=== PATIENT | male | born 1970 | race Caucasian/White ===

== ENCOUNTER → 2017-09-18 | Outpatient (CLI) | payer BC ==
--- NOTE | 2017-09-18 16:12 | CT ---
EXAM DESCRIPTION: Abdomen/Pelvis w/o Contrast: Computed Tomography. CLINICAL HISTORY: CALCULUS OF KIDNEY COMPARISON: None. TECHNIQUE: Spiral-axial scans at 5.0 mm intervals through the abdomen and pelvis. Coronal and sagittal 2.0 mm reconstructions. No IV or oral contrast. Total Exam DLP: 1255.64 mGy-cm. This exam was performed according to our departmental CT dose-optimization program which includes automated exposure control, adjustment of the mA and/or kV according to patient size and/or use of iterative reconstruction technique; to reduce radiation dose to as low as reasonably achievable (ALARA). FINDINGS: Kidneys and Ureters: 5.5 mm radiodense stone in the distal ureter just distal to the ureter crossing over the right common iliac artery and vein. Ureter proximal to this is distended with minimal periureteral edema. Normal caliber of the ureter distal to the stone. Mild hydronephrosis on the right. No perinephric stranding and no other radiodense stones. At least 5 radiodense stones in the left kidney, too of which are in the upper collecting system. Inferior stone is approximately 2 mm in diameter. The remaining stones are between 1 and 2 cm in diameter. No hydronephrosis or perinephric edema. Left ureter is unremarkable. Pelvic Organs: Urinary bladder contains no radiodense stones. Prostate gland is abutting the seminal vesicles. Minimal fluid in the anterior cul-de-sac of the pelvis. Lung and pleura bases: Negative. Liver, spleen, stomach, and adrenal glands: Unremarkable. Pancreas, Gallbladder, Ducts: Gallbladder visualized. Ducts and pancreas negative. Aorta: Unremarkable. Small Bowel: Negative. Terminal Ileum/Cecum: Normal caliber. Normal caliber of the appendix. Normal density of the surrounding fat. Colon: Small diverticula in the distal colon with no evidence of complications. Minimal redundancy of the sigmoid colon. Mesentery: No ascites or free air. Spine and Bony Pelvis: Bulging L5-S1 disc. Increased changes and disc space narrowing thoracic spine most likely old Scheuermann's disease. Abdominal Wall/Back Soft Tissues: Bilateral small fatty inguinal hernias not containing bowel. IMPRESSION: 1. 5.5 mm radiodense stone partially obstructing the right ureter as it crosses over the right common iliac artery and vein. Mild hydronephrosis and proximal right hydroureter. No significant radiodense stones in the right kidney. At least 5 radiodense stones in the left kidney 2 mm diameter or less. 2 in the upper collecting system. Left ureter unremarkable. CRITICAL COMMUNICATION: The critical value was discussed directly by phone with Mr. Anurag Aviles nurse practitioner at approximately 1558 hours, on September 18, 2017. Electronically signed by: Rigo Cadena MD 09/18/2017 4:10 PM CDT
== END ==
LOC: CT 10:34
PROVIDERS: ATTEND Nurse Practitioner Family
DX: N20.0 Calculus of kidney (principal)

== ENCOUNTER → 2017-12-27 | Outpatient (CLI) | payer BC | LOC: GMAL 13:08 | PROVIDERS: ATTEND Family Medicine | DX: D51.3 Other dietary vitamin B12 deficiency anemia (principal); Z12.5 Encounter for screening for malignant neoplasm of prostate; R53.81 Other malaise; E55.9 Vitamin D deficiency, unspecified ==

== ENCOUNTER 2018-01-23 22:05 | Emergency (ER) | payer BC ==
[2018-01-23] MEDS ORDERED: KETOROLAC TROMETHAMINE INJ 30 MG/ML VIAL IV ONE (22:31)
[2018-01-23] MEDS ORDERED: SODIUM CHLORIDE 0.9% 1000ML 1,000 ML IVS ONE (22:31)
--- NOTE | 2018-01-23 22:34 | ED.PDOC ---
History of Present Illness - General Chief Complaint: Problem Stated Complaint: Right sided flank pain Time Seen by Provider: 01/23/18 22:30 Source: patient Exam Limitations: no limitations - History of Present Illness Initial Comments: patient comes in today with sudden onset of severe right flank pain that radiates down to the right groin and abdomen. Patient states he was fine until approximately 5 PM when he started having the severe pain. He's also had some difficulty with urination and what urination he has been able to have had trace amount of blood. Patient has had no dysuria, fever, chills, nausea or vomiting. He has had kidney stones in the past. The last one was 5.5 mm and he does not believe it ever passed. At that time he had urology consultation but he did fail follow-up. He states it has not bothered him for several months and so he was not specifically concerned about it. Tonight when the pain started he took Flomax and when the pain persisted to become constant he decided to follow-up. Patient is otherwise healthy with only past medical history of hypertension and nephrolithiasis. Patient does not know the composition of passed stones. He's had no past surgical history. His allergies are only to sulfa. He does not smoke, drinks very rarely, and does not take illicit drugs. Timing/Duration: just prior to arrival Quality: severe, sharpness Onset Location: right flank Radiation: groin, scrotal Activites at Onset: none Prior abdominal problems: similar symptoms Improving Factors: nothing Worsening Factors: nothing Associated Symptoms: other - hematuria Allergies/Adverse Reactions: Allergies Sulfa Antibiotics Allergy (Verified 12/15/13 13:21) Home Medications: Ambulatory Orders HYDROcodone 5MG/APAP 325MG [[place] 5/325] 1 ea PO Q4-6H PRN #10 tab 12/15/13 Naproxen Sodium [Anaprox Ds] 550 mg PO BID #20 tab 12/15/13 Tamsulosin [Flomax] 0.4 mg PO DAILY #7 cap 12/15/13 Tramadol HCl [Ultram] 50 mg PO Q6HR PRN 7 Days #30 tab 01/24/18 Review of Systems - Review of Systems Constitutional: States: no symptoms reported. Denies: chills, diaphoresis, fever EENTM: States: no symptoms reported Respiratory: States: no symptoms reported. Denies: cough, short of breath, wheezing Cardiology: States: no symptoms reported. Denies: chest pain, edema, palpitations Gastrointestinal/Abdominal: States: see HPI Genitourinary: States: see HPI Musculoskeletal: States: no symptoms reported Skin: States: no symptoms reported Past Medical History (General) - Patient Medical History Hx MRSA: Yes - Foot 2011 MRSA Source:: Wound - Social History Hx Tobacco Use: No Family Medical History - Family History Mother Family History: No Known Physical Exam - Physical Exam General Appearance: Alert, No apparent distress Eyes, Ears, Nose, Throat Exam: PERRL/EOMI, normal ENT inspection Neck: non-tender, full range of motion, supple Cardiovascular/Respiratory: regular rate, rhythm, no M/R/G, normal peripheral pulses, normal breath sounds, no respiratory distress Gastrointestinal/Abdominal: normal bowel sounds, soft, other - TTP to RLQ, R flank, and R periumbilical area with no distention and no rebound Progress - Progress Progress: 01/23/18 23:05 Patient is resting comfortably after Toradol. Has not yet had to urinate. Will continue with IVF until we can get urine to check for infection. Still on first bag of fluid. UA consistent with nephrolithiasis with no infection. WBC is elevated but could be secondary to stress reaction and no other signs of infection. Follow up with PCP or Urology in 2 days and recheck labs. Continue to strain all urine and ultram given for pain. 01/24/18 00:15 - Results/Orders Results/Orders: 01/23/18 22:22 UA [URINALYSIS] Stat 01/23/18 22:31 Sodium Chloride 0.9% 1000ML [Ns 1000 ml] 1,000 ml IVS ONCE Laboratory Results WBC 15.8 K/mm3 (4.8-10.8) H 01/23/18 22:28 RBC 5.56 M/mm3 (4.70-6.10) 01/23/18 22:28 Hgb 16.0 gm/dL (14.0-18.0) 01/23/18 22:28 Hct 48.0 % (42.0-52.0) 01/23/18 22:28 MCV 86.3 fl (80.0-94.0) 01/23/18 22:28 MCH 28.7 pg (27.0-31.0) 01/23/18: MCHC 33.3 g/dL (33.0-37.0) 01/23/18: RDW 13.7 % (11.5-14.5) 01/23/18 22: Plt Count 376 K/mm3 (130-400) 01/23/18 22: MPV 6.9 fl (7.40-10.4) L 01/23/18: Absolute Neuts (auto) 13.30 K/uL (1.8-6.8) H 01/23/18 22: Absolute Lymphs (auto) 1.50 K/uL (1.0-3.4) 01/23/18: Absolute Monos (auto) 0.90 K/uL (0.2-0.8) H 01/23/18: Absolute Eos (auto) 0.10 K/uL (0.0-0.4) 01/23/18: Absolute Basos (auto) 0.10 K/uL (0.0-0.1) 01/23/18 22: Neutrophils % 84.0 % (42.0-78.0) H 01/23/18: Lymphocytes % 9.2 % (20.0-50.0) L 01/23/18: Monocytes % 5.8 % (2.0-9.0) 01/23/18: Eosinophils % 0.6 % (1.0-5.0) L 01/23/18: Basophils % 0.4 % (0.0-2.0) 01/23/18 22:28 Sodium 138 mmol/L (135-145) 01/23/18 22:28 Potassium 3.9 mmol/L (3.6-5.0) 01/23/18: Chloride 102 mmol/L (101-111) 01/23/18: Carbon Dioxide 30 mmol/L (21-31) 01/23/18 22:28 Anion Gap 9.9 (12-18) L 01/23/18 22:28 BUN 21 mg/dL (7-18) H 01/23/18 22:28 Creatinine 1.17 mg/dL (0.6-1.3) 01/23/18 22:28 BUN/Creatinine Ratio 17.9 (10-20) 01/23/18 22:28 Random Glucose 131 mg/dL (70-105) H 01/23/18 22:28 Serum Osmolality 280.5 mOsm/L (275-295) 01/23/18 22:28 Calcium 9.5 mg/dL (8.4-10.2) 01/23/18 22:28 Total Bilirubin 0.6 mg/dL (0.2-1.0) 01/23/18 22:28 AST 22 IU/L (10-42) 01/23/18 22:28 ALT 21 IU/L (10-60) 01/23/18 22:28 Alkaline Phosphatase 65 IU/L (42-121) 01/23/18 22:28 Serum Total Protein 7.6 gm/dL (6.4-8.2) 01/23/18 22:28 Albumin 4.3 g/dl (3.2-5.5) 01/23/18:28 Globulin 3.3 gm/dL (2.3-3.5) 01/23/18 22:28 Albumin/Globulin Ratio 1.3 (1.1-1.9) 01/23/18 22:28 Patient Name: MIKY FISHER Gender: Male Date of : 1970 Referring Physician: MANNY TERAN Organization: [facility] Accession Number: [id number] Requested Date: January 23, 2018 22:30 Report Status: Final Requested Procedure: 1 Procedure Description: Abdoment/Pelvis w/o Contrast Modality: CT Findings Reporting MD: Tim Keyes Fellow MD: Not available Dictation Time: Senior Bi Developer: Not available Extrusion Press Adjuster Date: PROCEDURE: Abdoment/Pelvis w/o Contrast HISTORY: right abdomen /cva pain hx of nephrolithiasis Indication: Same as above Comparison: None Technique: CT of the abdomen and pelvis was done without intravenous contrast. Images were obtained from the lung base to the level of the pubic symphysis in axial plane, followed by orthogonal sagittal and coronal reconstruction. Oral contrast was not given for the study. This exam was performed according to our departmental dose-optimization program, which includes automated exposure control, adjustment of the mA and/or KV according to the patient's size and/or use of iterative reconstruction technique. FINDINGS: Images through the lung bases do not show any focal infiltrates or pleural effusions. The liver, gallbladder, pancreas, spleen and the bilateral adrenal glands appear unremarkable, given the limitation of lack of intravenous contrast. There is presence of multiple subcentimeter nonobstructive bilateral renal calculi. There is right-sided hydroureteronephrosis to the level of 4 mm distal right pelvic ureteral calculus approximately 1.5 cm from the right ureterovesical junction The urinary bladder is unremarkable, without any evidence of wall thickening, calculi or filling defects. The small bowel appears unremarkable, without any evidence of small bowel obstruction or bowel wall thickening. Radiology [employer] [address] [place] [address], [address] [place] [address] T [phone] F [phone] [email or web address] Report exported on Jan 23, 2018 23:04:04 -0500 - Page 2 of [address] evidence of acute appendicitis, pericecal inflammatory change or ileocecal mesenteric adenitis. The ileocecal junction appears unremarkable. There is no CT evidence of acute colonic diverticulitis or colitis or large bowel obstruction. There is no pathological lymphadenopathy in the retroperitoneum or in the pelvic region. There is no evidence of free fluid or free air in the abdomen or the pelvic region. There is no clinically significant abdominal aortic aneurysm. There is presence of small fat-containing bilateral inguinal hernias The visualized lumbar spine is unremarkable. The paravertebral soft tissues are unremarkable. The remainder of the pelvic structures are unremarkable. IMPRESSION: There is presence of multiple subcentimeter nonobstructive bilateral renal calculi. There is right-sided hydroureteronephrosis to the level of 4 mm distal right pelvic ureteral calculus approximately 1.5 cm from the right ureterovesical junction Laboratory Results WBC 15.8 K/mm3 (4.8-10.8) H 01/23/18 22:28 RBC 5.56 M/mm3 (4.70-6.10) 01/23/18 22:28 Hgb 16.0 gm/dL (14.0-18.0) 01/23/18 22:28 Hct 48.0 % (42.0-52.0) 01/23/18 22:28 MCV 86.3 fl (80.0-94.0) 01/23/18 22: MCH 28.7 pg (27.0-31.0) 01/23/18: MCHC 33.3 g/dL (33.0-37.0) 01/23/18: RDW 13.7 % (11.5-14.5) 01/23/18 22: Plt Count 376 K/mm3 (130-400) 01/23/18 22: MPV 6.9 fl (7.40-10.4) L 01/23/18 22:28 Absolute Neuts (auto) 13.30 K/uL (1.8-6.8) H 01/23/18: Absolute Lymphs (auto) 1.50 K/uL (1.0-3.4) 01/23/18: Absolute Monos (auto) 0.90 K/uL (0.2-0.8) H 01/23/18: Absolute Eos (auto) 0.10 K/uL (0.0-0.4) 01/23/18: Absolute Basos (auto) 0.10 K/uL (0.0-0.1) 01/23/18: Neutrophils % 84.0 % (42.0-78.0) H 01/23/18: Lymphocytes % 9.2 % (20.0-50.0) L 01/23/18: Monocytes % 5.8 % (2.0-9.0) 01/23/18: Eosinophils % 0.6 % (1.0-5.0) L 01/23/18: Basophils % 0.4 % (0.0-2.0) 01/23/18:28 Sodium 138 mmol/L (135-145) 01/23/18: Potassium 3.9 mmol/L (3.6-5.0) 01/23/18: Chloride 102 mmol/L (101-111) 01/23/18:28 Carbon Dioxide 30 mmol/L (21-31) 01/23/18 22:28 Anion Gap 9.9 (12-18) L 01/23/18 22:28 BUN 21 mg/dL (7-18) H 01/23/18 22:28 Creatinine 1.17 mg/dL (0.6-1.3) 01/23/18 22:28 BUN/Creatinine Ratio 17.9 (10-20) 01/23/18 22:28 Random Glucose 131 mg/dL (70-105) H 01/23/18 22:28 Serum Osmolality 280.5 mOsm/L (275-295) 01/23/18 22:28 Calcium 9.5 mg/dL (8.4-10.2) 01/23/18 22:28 Total Bilirubin 0.6 mg/dL (0.2-1.0) 01/23/18 22:28 AST 22 IU/L (10-42) 01/23/18 22:28 ALT 21 IU/L (10-60) 01/23/18 22:28 Alkaline Phosphatase 65 IU/L (42-121) 01/23/18 22:28 Serum Total Protein 7.6 gm/dL (6.4-8.2) 01/23/18 22:28 Albumin 4.3 g/dl (3.2-5.5) 01/23/18 22:28 Globulin 3.3 gm/dL (2.3-3.5) 01/23/18 22:28 Albumin/Globulin Ratio 1.3 (1.1-1.9) 01/23/18 22:28 Urine Color Yellow (Yellow) 01/23/18 23:43 Urine Appearance Clear (Clear) 01/23/18 23:43 Urine pH 5.5 (4.5-7.8) 01/23/18 23:43 Ur Specific [place] 1.025 (1.005-1.030) 01/23/18 23:43 Urine Protein Negative mg/dL 01/23/18 23:43 Urine Glucose (UA) Negative mg/dL (Negative) 01/23/18 23:43 Urine Ketones Negative mg/dL (NEGATIVE) 01/23/18 23:43 Urine Blood Small (Negative) H 01/23/18 23:43 Urine Nitrite Negative 01/23/18 23:43 Urine Bilirubin Negative (NEGATIVE) 01/23/18 23:43 Urine Urobilinogen 0.2 mg/dL (0.2-1.0) 01/23/18 23:43 Ur Leukocyte Esterase Negative (Negative) 01/23/18 23:43 Urine RBC 5-10 /hpf H 01/23/18 23:43 Urine WBC 1-3 /hpf 01/23/18 23:43 Ur Epithelial Cells 3-5 /hpf 01/23/18 23:43 Urine Bacteria Rare 01/23/18 23:43 Departure - Departure Clinical Impression: Urolithiasis Qualifiers: Urinary calculus location: ureter Qualified Code(s): N20.1 - Calculus of ureter Disposition: Discharge to Home or Self Care Condition: Good Departure Forms: ED Discharge - Pt. Copy, Patient Portal Self Enrollment Referrals: Amor Gonzales III, MD [Primary Care Provider] - 1-2 Weeks Home Medications: Ambulatory Orders HYDROcodone 5MG/APAP 325MG [[place] 5/325] 1 ea PO Q4-6H PRN #10 tab 12/15/13 Naproxen Sodium [Anaprox Ds] 550 mg PO BID #20 tab 12/15/13 Tamsulosin [Flomax] 0.4 mg PO DAILY #7 cap 12/15/13 Tramadol HCl [Ultram] 50 mg PO Q6HR PRN 7 Days #30 tab 01/24/18 Additional Instructions: follow up 2 days with PCP and recheck labs. Return to ER for temp >100.5, emesis, intractable pain, or difficulty urinating.
--- NOTE | 2018-01-23 22:59 | CT ---
PROCEDURE: Abdoment/Pelvis w/o Contrast HISTORY: right abdomen /cva pain hx of nephrolithiasis Indication: Same as above Comparison: None Technique: CT of the abdomen and pelvis was done without intravenous contrast. Images were obtained from the lung base to the level of the pubic symphysis in axial plane, followed by orthogonal sagittal and coronal reconstruction. Oral contrast was not given for the study. This exam was performed according to our departmental dose-optimization program, which includes automated exposure control, adjustment of the mA and/or KV according to the patient's size and/or use of iterative reconstruction technique. FINDINGS: Images through the lung bases do not show any focal infiltrates or pleural effusions. The liver, gallbladder, pancreas, spleen and the bilateral adrenal glands appear unremarkable, given the limitation of lack of intravenous contrast. There is presence of multiple subcentimeter nonobstructive bilateral renal calculi. There is right-sided hydroureteronephrosis to the level of 4 mm distal right pelvic ureteral calculus approximately 1.5 cm from the right ureterovesical junction The urinary bladder is unremarkable, without any evidence of wall thickening, calculi or filling defects. The small bowel appears unremarkable, without any evidence of small bowel obstruction or bowel wall thickening. There is no CT evidence of acute appendicitis, pericecal inflammatory change or ileocecal mesenteric adenitis. The ileocecal junction appears unremarkable. There is no CT evidence of acute colonic diverticulitis or colitis or large bowel obstruction. There is no pathological lymphadenopathy in the retroperitoneum or in the pelvic region. There is no evidence of free fluid or free air in the abdomen or the pelvic region. There is no clinically significant abdominal aortic aneurysm. There is presence of small fat-containing bilateral inguinal hernias The visualized lumbar spine is unremarkable. The paravertebral soft tissues are unremarkable. The remainder of the pelvic structures are unremarkable. IMPRESSION: There is presence of multiple subcentimeter nonobstructive bilateral renal calculi. There is right-sided hydroureteronephrosis to the level of 4 mm distal right pelvic ureteral calculus approximately 1.5 cm from the right ureterovesical junction Electronically signed by: Tim Keyes MD 01/23/2018 10:57 PM CDT Workstation: [id number]
[2018-01-24] MEDS ORDERED: HYDROCOD/APAP 5/325 (ER DISP) #3 TAB PO ONE (00:20)
[2018-01-24 00:35] VITALS: BP 126/76; TEMP 98.4; O2SAT 96
== END 2018-01-24 00:30 | disposition home or self-care (01) ==
LOC: ER 22:05
DX: N13.2 Hydronephrosis with renal and ureteral calculous obstruction (principal); I10 Essential (primary) hypertension; Z88.2 Allergy status to sulfonamides; Z87.442 Personal history of urinary calculi; Z79.899 Other long term (current) drug therapy
CPT/HCPCS: 36415; 74176; 80053; 81001; 85025; J1885; J7030

== ENCOUNTER 2018-02-18 19:35 | Emergency (ER) | payer BC ==
[2018-02-18 19:52] VITALS: O2SAT 99
--- NOTE | 2018-02-18 19:55 | ED.PDOC ---
History of Present Illness - General Chief Complaint: Problem Stated Complaint: right flank pain, possible kidney stone Time Seen by Provider: 02/18/18 19:52 Source: patient Exam Limitations: no limitations - History of Present Illness Initial Comments: Patient presents with right flank pain since yesterday. He has a history of passing kidney stones having passed three this year already. He is having trouble urinating with this one. No fevers. No dysuria. No visible hematuria. No other complaint. Timing/Duration: 24 hours Severity: moderate Improving Factors: rest Worsening Factors: movement Associated Symptoms: denies symptoms Allergies/Adverse Reactions: Allergies Sulfa Antibiotics Allergy (Verified 02/18/18 19:52) Home Medications: Ambulatory Orders HYDROcodone 5MG/APAP 325MG [[place] 5/325] 1 ea PO Q4-6H PRN #10 tab 12/15/13 Naproxen Sodium [Anaprox Ds] 550 mg PO BID #20 tab 12/15/13 Tamsulosin [Flomax] 0.4 mg PO DAILY #7 cap 12/15/13 Tramadol HCl [Ultram] 50 mg PO Q6HR PRN 7 Days #30 tab 01/24/18 Ketorolac Tromethamine [Toradol Tabs] 10 mg PO Q6HRS PRN #20 tab 02/18/18 Review of Systems - Review of Systems Constitutional: States: no symptoms reported EENTM: States: no symptoms reported Respiratory: States: no symptoms reported Cardiology: States: no symptoms reported Gastrointestinal/Abdominal: States: no symptoms reported Genitourinary: States: see HPI Musculoskeletal: States: no symptoms reported Skin: States: no symptoms reported Neurological: States: no symptoms reported Endocrine: States: no symptoms reported Hematologic/Lymphatic: States: no symptoms reported Past Medical History (General) - Patient Medical History Hx Seizures: No Hx Stroke: No Hx Dementia: No Hx Asthma: No Hx of COPD: No Hx Cardiac Disorders: No Hx Congestive Heart Failure: No Hx Pacemaker: No Hx Hypertension: Yes Hx Thyroid Disease: No Hx Diabetes: No Hx Gastroesophageal Reflux: No Hx Renal Disease: No Hx Cancer: No Hx of HIV: No Hx Hepatitis C: No Hx MRSA: Yes - 2011 MRSA Source:: Wound - Vaccination History Hx Tetanus, Diphtheria Vaccination: No Hx Influenza Vaccination: No Hx Pneumococcal Vaccination: No - Social History Hx Tobacco Use: No Hx Alcohol Use: Yes - social Hx Substance Use: No Hx Substance Use Treatment: No Hx Depression: No Hx Physical Abuse: No Hx Emotional Abuse: No Hx Suspected Abuse: No Family Medical History - Family History Mother Family History: No Known Physical Exam - Physical Exam General Appearance: Alert Eye Exam: bilateral normal Ears, Nose, Throat: normal ENT inspection Neck: non-tender, full range of motion, supple Respiratory: lungs clear, normal breath sounds Cardiovascular/Chest: normal peripheral pulses, regular rate, rhythm, no edema Gastrointestinal/Abdominal: normal bowel sounds, non tender, soft Back Exam: CVA tenderness (R) Extremity: normal range of motion, non-tender, normal inspection Neurologic: no motor/sensory deficits, alert, normal mood/affect, oriented x 3 Skin Exam: normal color Lymphatic: no adenopathy Progress - Progress Progress: 02/18/18 22:44 Laboratory Tests 02/18/18 02/18/18 02/18/18 20:00 20:00 22:10 WBC 13.5 H RBC 4.93 Hgb 14.1 Hct 42.5 MCV 86.2 MCH 28.6 MCHC 33.2 RDW 13.4 Plt Count 313 MPV 6.7 L Absolute Neuts (auto) 11.10 H Absolute Lymphs (auto) 1.50 Absolute Monos (auto) 0.80 Absolute Eos (auto) 0.10 Absolute Basos (auto) 0.10 Neutrophils % 82.2 H Lymphocytes % 10.9 L Monocytes % 6.0 Eosinophils % 0.5 L Basophils % 0.4 Sodium 139 Potassium 3.9 Chloride 101 Carbon Dioxide 29 Anion Gap 12.9 BUN 25 H Creatinine 1.27 BUN/Creatinine Ratio 19.7 Random Glucose 133 H Serum Osmolality 283.9 Calcium 9.1 Urine Color [place] Urine Appearance Clear Urine pH 5.5 Ur Specific [place] >= 1.030 Urine Protein Negative Urine Glucose (UA) Negative Urine Ketones Negative Urine Blood Trace-intact H Urine Nitrite Negative Urine Bilirubin Negative Urine Urobilinogen 0.2 Ur Leukocyte Esterase Negative Urine RBC 1-3 Urine WBC 3-5 H Ur Epithelial Cells 0-1 Calcium Oxalate Crystal 1+ Amorphous Sediment 1+ Urine Bacteria 1+ Hyaline Casts 0-1 Urine Mucus Moderate Toradol 30 mg IM x one relieved the pain. CT ab/pelvis showed 7 mm stone in right ureter. Care instructions given. E.R. warnings given. Questions were elicited and answered. Patient voiced understanding and agreement with the plan. Departure - Departure Clinical Impression: Urolithiasis Disposition: Discharge to Home or Self Care Condition: Good Departure Forms: ED Discharge - Pt. Copy, Patient Portal Self Enrollment Instructions: DI for Kidney Stones Diet: resume usual diet, other - increase fluids Activity: increase activity as tolerated Referrals: Amor Gonzales III, MD [Primary Care Provider] - 1-2 Weeks Prescriptions: Ketorolac Tromethamine [Toradol Tabs] 10 mg PO Q6HRS PRN #20 tab PRN Reason: Moderate Pain Home Medications: Ambulatory Orders HYDROcodone 5MG/APAP 325MG [[place] 5/325] 1 ea PO Q4-6H PRN #10 tab 12/15/13 Naproxen Sodium [Anaprox Ds] 550 mg PO BID #20 tab 12/15/13 Tamsulosin [Flomax] 0.4 mg PO DAILY #7 cap 12/15/13 Tramadol HCl [Ultram] 50 mg PO Q6HR PRN 7 Days #30 tab 01/24/18 Ketorolac Tromethamine [Toradol Tabs] 10 mg PO Q6HRS PRN #20 tab 02/18/18 Additional Instructions: Increase fluids. Take medications as prescribed. Try to catch the stone with a strainer and bring it to the lab here for evaluation. See a glove turner and former for guidance as to how you can avoid future stones. Return to the E.R. for fever, pain with urination, or if pain continues more than 3 more days.
[2018-02-18] MEDS: KETOROLAC TROMETHAMINE INJ 30 MG/ML VIAL IM ONE (20:01)
--- NOTE | 2018-02-18 21:26 | CT ---
EXAM DESCRIPTION: Abdoment/Pelvis w/o Contrast CLINICAL HISTORY: 47 years Male, stone protocol Comparison: 01/23/2018, 09/18/2017 and 12/15/2013 TECHNIQUE: Contiguous axial images of the abdomen and pelvis were obtained without IV contrast followed by reconstruction images. This exam was performed according to our departmental dose-optimization program, which includes automated exposure control, adjustment of the mA and/or kV according to patient size and/or use of iterative reconstruction technique. FINDINGS: Lung bases/lower chest: Minimal bibasilar subsegmental atelectasis. Increased fat attenuation in the distal right paraesophageal region could represent herniated intra-abdominal fat versus paraesophageal lipoma, stable. Liver: No gross finding. Gallbladder/Bile ducts: Gallbladder within normal limits. No intra or extrahepatic biliary ductal dilatation. Spleen: Within normal limits Pancreas: Within normal limits Adrenal glands: Within normal limits Kidneys/Bladder: Obstructing distal right ureteric stone measuring 7 mm just proximal to the right ureterovesicular junction. Mild to moderate right hydroureteronephrosis. This appears to represent interval migration of a previously noted distal ureteric stone previous CT performed 01/23/2018. Bilateral nonobstructing punctate renal stones. Duplicated left renal collecting system, anatomical variant. Mild bilateral perinephric stranding. GI tract: No evidence of bowel obstruction. Scattered descending colon diverticula without adjacent findings to suggest active inflammatory process. The appendix is within normal limits. Moderate amount of stool throughout the large bowel. Prostate gland: Within normal limits Vascular structures: Limited evaluation in this unenhanced study. Free fluid: No free fluid. Lymph nodes: No lymphadenopathy. Soft tissues: Within normal limits Bones: No acute osseous finding. IMPRESSION: Distal obstructive right ureterolithiasis (7 mm), just proximal to the ureterovesicular junction. Associated mild to moderate proximal right hydroureteronephrosis. This appears to represent interval migration of a previously noted distal right ureteric stone on previous CT performed 01/23/2018. Electronically signed by: Ludy Singh MD 02/18/2018 9:25 PM [employer]
[2018-02-18 22:59] VITALS: BP 121/76; TEMP 98.1
== END 2018-02-18 22:59 | disposition home or self-care (01) ==
LOC: ER 19:35
DX: N13.2 Hydronephrosis with renal and ureteral calculous obstruction (principal); I10 Essential (primary) hypertension; Z79.899 Other long term (current) drug therapy; Z88.2 Allergy status to sulfonamides
CPT/HCPCS: 36415; 74176; 80048; 81001; 85025; J1885

== ENCOUNTER → 2019-10-29 | Outpatient (CLI) | payer BC ==
--- NOTE | 2019-10-29 17:06 | CT ---
EXAM DESCRIPTION: Abdoment/Pelvis w/o Contrast: Computed Tomography. CLINICAL HISTORY: KIDNEY STONES COMPARISON: Noncontrast CT scan of the abdomen and pelvis February 2018. TECHNIQUE: Spiral-axial scans at 2.5 x 2.5 mm intervals through the abdomen and pelvis. Coronal and sagittal 2.0 mm reconstructions. No IV or oral contrast. Total Exam DLP: 1462 mGy-cm. This exam was performed according to our departmental CT dose-optimization program which includes automated exposure control, adjustment of the mA and/or kV according to patient size and/or use of iterative reconstruction technique; to reduce radiation dose to as low as reasonably achievable (ALARA). FINDINGS: Kidneys and Ureters: 2 mm radiodense stone in the distal aspect of the left ureterovesical junction. Minimally distended distal left ureter compared to right and minimal fatty edema abutting the ureterovesical junction. 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 Trace amount of hydronephrosis in the upper collecting system suggesting origin of the partially obstructing stone. Another 3 mm radiodense stone in the upper collecting system. 4, 2-mm radiodense stones in the lower collecting system and one 3 mm stone but no hydronephrosis. No perirenal fluid. Partially duplicated collecting system in the right kidney with ureters joining close to the renal pelves. Right ureter is unremarkable. Minimal "gravel" in the superior aspect of the collecting system. No hydronephrosis or perirenal fluid. Pelvic Organs: For urinary bladder see above, otherwise unremarkable. Lung and pleura bases: Negative. Liver, spleen, stomach, and adrenal glands: Limited by lack of IV contrast. Unremarkable. Pancreas, Gallbladder, Ducts: Limited by lack of IV contrast. Gallbladder contracted and otherwise unremarkable. Aorta: Minimal atherosclerotic calcification distally normal outer caliber. Small Bowel: Negative. Terminal Ileum/Cecum: Normal caliber. Minimal fecal matter in the cecum. Normal caliber of the appendix. No inflammatory changes. Colon: Minimal fatty infiltration of the proximal and mid colon. Diverticula in the descending and sigmoid colon. Moderate redundancy of the sigmoid colon. No complications. Mesentery: Trace amount of fatty stranding around the distal left ureter. No free air or free fluid. Spine and Bony Pelvis: Spondylosis in the thoracic spine. Minimal bulging of the L5-S1 disc and foraminal narrowing. Bilateral hip joint arthrosis with minimal narrowing on the left. Abdominal Wall/Back Soft Tissues: Bilateral small fatty inguinal hernias without complication. Small inguinal nodes. IMPRESSION: 1. Recently passed 2 mm stone in the distal or superior aspect of the left ureterovesical junction, and residual mild dilation of the distal left ureter. 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 3 mm stone in the superior collecting system and 3 mm stone in the inferior collecting system along with numerous smaller stones. Trace amount of hydronephrosis in the superior collecting system. Partial duplex collecting system in the right kidney and minimal gravel in the upper collecting system. No hydronephrosis and right ureter is negative. 2. Minimal constipation and diverticulosis distal colon with no complications. Lower thoracic spondylosis. Bulging L5-S1 disc. Electronically signed by: Rigo Cadena MD 10/29/2019 5:05 PM CDT
== END ==
LOC: CT 13:54
PROVIDERS: ATTEND Nurse Practitioner Family
DX: N20.1 Calculus of ureter (principal); N28.9 Disorder of kidney and ureter, unspecified; N13.30 Unspecified hydronephrosis; K59.00 Constipation, unspecified; K57.30 Diverticulosis of large intestine without perforation or abscess without bleeding; M47.894 Other spondylosis, thoracic region; M51.87 Other intervertebral disc disorders, lumbosacral region

== ENCOUNTER → 2020-05-04 | Outpatient (CLI) | payer BC | LOC: YCFC.O 15:59 | PROVIDERS: ATTEND Nurse Practitioner Family | DX: Z20.828 Contact with and (suspected) exposure to other viral communicable diseases (principal) ==